=== PATIENT | female | born 1975 | race Caucasian/White ===

== ENCOUNTER → 2019-01-18 | Outpatient (CLI) | payer MEDICAID ==
--- NOTE | 2019-01-18 16:36 | KCIC ---
Bilateral digital screening mammograms: Reason for examination: Routine baseline screening. Interpretation is made with the benefit of CAD. The skin and nipples show no abnormalities. No abnormal lymph nodes are seen. The breast parenchyma is predominantly fatty. (Breast density: Category A.) There are no dominant masses, suspicious calcifications or architectural distortions. Impression: No evidence of malignancy. Recommend routine screening. BI-RADS Category 1: Negative. "Our facility is accredited by the [employer] Mammography Program." This patient's information has been entered into a reminder system for the patient to be notified with the results of her examination and a target date for the next mammogram. Electronically signed by: Vy Brizuela MD (01/18/2019 4:33 PM) [id number]
== END | disposition home or self-care (01) ==
LOC: KCIC MAMMO 11:10
PROVIDERS: ATTEND Nurse Practitioner Family
DX: Z12.31 Encounter for screening mammogram for malignant neoplasm of breast (principal)
CPT/HCPCS: 77067

== ENCOUNTER → 2021-07-21 | Outpatient (CLI) | payer MEDICAID ==
--- NOTE | 2021-07-21 17:14 | KCIC ---
EXAM: XR CERVICAL SPINE 2-3V 07/21/2021 3:20 PM CLINICAL INDICATION: Neuropathy of left upper extremity COMPARISON: None TECHNIQUE: AP, lateral, swimmer's, and odontoid views of the cervical spine FINDINGS: There is no acute fracture. Alignment is normal. There is straightening of lordosis. Minim al disc space narrowing at C6-C7 with tiny anterior osteophytes. No significant intervertebral joint proliferation or arthrosis. The dens is intact and symmetric and the ring of C1. Prevertebral soft ti ssues is normal. IMPRESSION: Minimal degenerative disc disease at C6-C7. Electronically signed by: Tita Leblanc MD (07/21/2021 5:11 PM) [id number]
== END ==
LOC: KCIC 15:17
PROVIDERS: ATTEND Nurse Practitioner Family
DX: M47.812 Spondylosis without myelopathy or radiculopathy, cervical region (principal); M48.02 Spinal stenosis, cervical region; M25.78 Osteophyte, vertebrae; G56.92 Unspecified mononeuropathy of left upper limb
CPT/HCPCS: 72040